=== PATIENT | male | born 1945 | race Caucasian/White ===

== ENCOUNTER 2023-06-09 02:45 | Emergency (ER) | payer OTHER ==
[2023-06-09 03:50] LABS: Hematocrit 37.2 % (39.6-49.0); Lymphocytes % 12.8 % (15.3-44.8); MCV 86.5 fL (80-100); MPV 6.3 fL (7.6-11.3); Platelets 225 thou/uL (152-406)
[2023-06-09 04:02] LABS: Albumin 3.8 g/dL (3.4-5.0); Bilirubin Direct 0.2 mg/dL (0-0.2); Bilirubin Indirect, Calculated 0.5 mg/dL (0.2-0.8); Bilirubin Total 0.7 mg/dL (0.2-1.0); Potassium 3.8 mEq/L (3.5-5.1); Protein, Total 7.7 g/dL (6.4-8.2); Troponin High Sensitivity 12.4 pg/mL (<58.9)
--- NOTE | 2023-06-09 04:12 | ER ---
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 Pt cm10 reports that he is also seeing floaters. Coronavirus screen: Vaccine status: Patient reports being unvaccinated. Client denies travel out of the [place] in the last 14 days. Ebola Screen: Patient denies travel to an Ebola-affected area in the 21 days before illness onset. No symptoms or risks identified at this time. Initial Sepsis Screen: Does the patient meet any 2 criteria? No. Patient's initial sepsis screen is negative. Does the patient have a suspected source of infection? No. Patient's initial sepsis screen is negative. Risk Assessment: Do you want to hurt yourself or someone else? Patient reports no desire to harm self or others. Onset of symptoms was June 09, 2023. 03:07 Method Of Arrival: Ambulatory cm10 03:07 Acuity: DK 3 cm10 Triage Assessment: 03:09 General: Appears in no apparent distress. comfortable, Behavior is calm, cooperative. cm10 Pain: Denies pain. EENT:. EENT: No deficits noted. No signs and/or symptoms were reported regarding the EENT system. Neuro: No deficits noted. Level of Consciousness is awake, alert, obeys commands, Oriented to person, place, time, situation, Reports. Cardiovascular: No deficits noted. Respiratory: No deficits noted. Airway is patent Respiratory effort is even, unlabored, Respiratory pattern is regular, symmetrical. GI: No deficits noted. No signs and/or symptoms were reported involving the gastrointestinal system. : No deficits noted. No signs and/or symptoms were reported regarding the genitourinary system. Derm: No deficits noted. No signs and/or symptoms reported regarding the dermatologic system. Skin is intact, Skin is pink, warm \T\ dry. Musculoskeletal: No deficits noted. No signs and/or symptoms reported regarding the musculoskeletal system. Historical: - Allergies: 03:09 NKDA; cm10 - PMHx: 03:09 CVA; Diabetes - NIDDM; Hypertension; Hypercholesterolemia; cm10 - Immunization history:: Adult Immunizations unknown. - Social history:: Smoking status: Patient/guardian denies using tobacco, the patient reports quitting approximately 20 years ago. Screenin:11 [facility] ED Fall Risk Assessment (Adult) History of falling in the last 3 months, cm10 including since admission No falls in past 3 months (0 pts) Confusion or Disorientation No (0 pts) Intoxicated or Sedated No (0 pts) Impaired Gait No (0 pts) Mobility Assist Device Used No (0 pt) Altered Elimination No (0 pt) Score/Fall Risk Level 0 - 2 = Low Risk Oriented to surroundings, Maintained a safe environment, Hourly rounding (assess needs \T\ fall precautionary measures) done. Abuse screen: Denies threats or abuse. Denies injuries from another. Nutritional screening: No deficits noted. Tuberculosis screening: No symptoms or risk factors identified. Assessment: 03:23 General: Appears in no apparent distress. comfortable, slender, Behavior is calm, jj7 cooperative, appropriate for age, Reports. Pain: Denies pain. Neuro: No deficits noted. EENT: Reports EYE FLOATERS. Vital Signs: 03:07 BP 205 / 88; Pulse 89; Resp 18 S; Temp 97.8; Pulse Ox 100% on R/A; Weight 68.04 kg; cm10 Height 6 ft. 1 in. ; Pain 0/10; 04:00 BP 161 / 72; Pulse 69; Resp 17; Pulse Ox 99% on R/A; pf1 03:07 Body Mass Index 19.79 (68.04 kg, 185.42 cm) cm10 03:07 Pain Scale: Adult cm10 ED Course: 02:50 Patient arrived in ED. gm2 02:51 Enoc Rubio MD is Private Physician. gm2 03:07 Vonnie Sparks MD is Attending Physician. sp3 03:09 Triage completed. cm10 03:09 Arm band placed on Patient placed in an exam room, on a stretcher. cm10 03:12 Mariano Cook RN is Primary Nurse. jj7 03:23 Patient has correct armband on for positive identification. Bed in low position. Call jj7 light in reach. Side rails up X2. Client placed on continuous cardiac and pulse oximetry monitoring. NIBP monitoring applied. tobacco shaker on. Pulse ox on. NIBP on. Warm blanket given. 03:23 Inserted saline lock: 20 gauge in right antecubital area, using aseptic technique. jj7 Blood collected. 03:33 CT Head Brain wo Cont In Process Unspecified. EDMS 04:34 Provided Education on: FOODS TO EAT FOR LOW BLOOD SUGAR. jj7 04:34 No provider procedures requiring assistance completed. IV discontinued, intact, jj7 bleeding controlled, No redness/swelling at site. Pressure dressing applied. Administered Medications: No medications were administered Medication: 03:11 VIS not applicable for this client. cm10 Outcome: 04:11 Discharge ordered by . [email or web address] 04:34 Discharged to home ambulatory, jj7 04:34 Condition: improved 04:34 Discharge instructions given to patient, Instructed on discharge instructions, Demonstrated understanding of instructions, 04:35 Patient left the ED. jj7 Signatures: Dispatcher [employer] Vonnie Mcclendon MD MD sp3 Mariano Cook RN RN jj7 Dora Ribeiro, DAVI RN pf1 Batsheva Zarate RN RN cm10 Bobbi Lopez 2
--- NOTE | 2023-06-09 04:12 | EDPHYS ---
Physician Documentation [facility] Name: Irving Mendenhall Age: 78 yrs Sex: Male : 1945 Arrival Date: 06/09/2023 Time: 02:45 Bed 17 Private MD: Enoc Rubio T ED Physician Vonnie Sparks HPI: 06/09 03:22 This 78 yrs old Male presents to ER via Ambulatory with complaints of High Blood Sugar, sp3 Dizziness. 03:22 78-year-old male with history of non-insulin diabetes, CVA, hypertension, sp3 hyperlipidemia presents to the ED with chief complaint hyperglycemia and "spots in his vision" which have now improved for the most part. His blood sugar at home was 280 which got him concerned and therefore he presents to the ED. He denies any other symptoms include polyuria, polydipsia, headache, chest pain, shortness of breath, abdominal pain, nausea, vomiting, diarrhea, syncope, near syncope, rash, focal neurological deficit including weakness or numbness (above his baseline bilateral hand numbness that he has had) or any other signs or symptoms on ROS at this time.. Historical: - Allergies: 03:09 NKDA; cm10 - PMHx: 03:09 CVA; Diabetes - NIDDM; Hypertension; Hypercholesterolemia; cm10 - Immunization history:: Adult Immunizations unknown. - Social history:: Smoking status: Patient/guardian denies using tobacco, the patient reports quitting approximately 20 years ago. ROS: 03:24 Constitutional: Negative for fever, chills, and weight loss, ENT: Negative for injury, sp3 pain, and discharge, Neck: Negative for injury, pain, and swelling, Cardiovascular: Negative for chest pain, palpitations, and edema, Respiratory: Negative for shortness of breath, cough, wheezing, and pleuritic chest pain, Abdomen/GI: Negative for abdominal pain, nausea, vomiting, diarrhea, and constipation, Back: Negative for injury and pain, MS/Extremity: Negative for injury and deformity, Skin: Negative for injury, rash, and discoloration, Neuro: Negative for headache, weakness, numbness, tingling, and seizure, Psych: Negative for depression, anxiety, suicide ideation, homicidal ideation, and hallucinations, Allergy/Immunology: Negative for hives, rash, and allergies, Endocrine: Negative for neck swelling, polydipsia, polyuria, polyphagia, and marked weight changes, 03:24 All other systems are negative, Exam: 03:25 Constitutional: This is a well developed, well nourished patient who is awake, alert, sp3 and in no acute distress. Head/Face: Normocephalic, atraumatic. Eyes: Pupils equal round and reactive to light, extra-ocular motions intact. Lids and lashes normal. Conjunctiva and sclera are non-icteric and not injected. Cornea within normal limits. Periorbital areas with no swelling, redness, or edema. ENT: Nares patent. No nasal discharge, no septal abnormalities noted. External auditory canals are clear. Oropharynx with no redness, swelling, or masses, exudates, or evidence of obstruction, uvula midline. Mucous membranes moist. Neck: Trachea midline, no thyromegaly or masses palpated, and no cervical lymphadenopathy. Supple, full range of motion without nuchal rigidity, or vertebral point tenderness. No Meningismus. Chest/axilla: Normal chest wall appearance and motion. Nontender with no deformity. No lesions are appreciated. Cardiovascular: Regular rate and rhythm with a normal S1 and S2. No gallops, murmurs, or rubs. Normal PMI, no JVD. No pulse deficits. Respiratory: Lungs have equal breath sounds bilaterally, clear to auscultation and percussion. No rales, rhonchi or wheezes noted. No increased work of breathing, no retractions or nasal flaring. Abdomen/GI: Soft, non-tender, with normal bowel sounds. No distension or tympany. No guarding or rebound. No evidence of tenderness throughout. Back: No spinal tenderness. No costovertebral tenderness. Full range of motion. Skin: Warm, dry with normal turgor. Normal color with no rashes, no lesions, and no evidence of cellulitis. MS/ Extremity: Pulses equal, no cyanosis. Neurovascular intact. Full, normal range of motion. Neuro: Awake and alert, GCS 15, oriented to person, place, time, and situation. Cranial nerves II-XII grossly intact. Motor strength 5/5 in all extremities. Sensory grossly intact. Cerebellar exam normal. Normal gait. Psych: Awake, alert, with orientation to person, place and time. Behavior, mood, and affect are within normal limits. 04:00 ECG was reviewed by the Attending Physician. EKG demonstrates normal sinus rhythm with sp3 first-degree AV block at 202 ms, normal QRS, normal axis, mild J-point elevation inferiorly and nonspecific ST/T changes without any evidence of acute ischemia. Vital Signs: 03:07 BP 205 / 88; Pulse 89; Resp 18 S; Temp 97.8; Pulse Ox 100% on R/A; Weight 68.04 kg; cm10 Height 6 ft. 1 in. ; Pain 0/10; 04:00 BP 161 / 72; Pulse 69; Resp 17; Pulse Ox 99% on R/A; pf1 03:07 Body Mass Index 19.79 (68.04 kg, 185.42 cm) cm10 03:07 Pain Scale: Adult cm10 MDM: 03:07 Patient medically screened. sp3 03:25 Data reviewed: vital signs, nurses notes, longterm records, old medical records, sp3 lab test result(s), EKG, radiologic studies. ED course: 78-year-old male with symptoms of hyperglycemia" spots on his vision" he also is hypertensive at 205/88. We will treat as a rule out acidosis and pretense of urgency scenario. Work-up will include laboratory values, EKG, CT scan of the head and general observation. No intervention for the hyperglycemia required since our fingerstick blood glucose was 150. If work-up is negative, we will safely discharge patient home. Possibly intervene on blood pressure but will trend it out before medical intervention.. 04:10 ED course: Patient is not in acidosis and does not demonstrate any endorgan damage. Old sp3 CVA is present on CT. We will safely discharge patient home at this time.. 06/09 03:08 Order name: Basic Metabolic Panel; Complete Time: 04:09 sp3 06/09 03:08 Order name: CBC with Diff; Complete Time: 03:59 sp3 06/09 03:08 Order name: Hepatic Function; Complete Time: 04: sp3 06/09 03:08 Order name: Magnesium; Complete Time: 04:09 sp3 06/09 03:08 Order name: Troponin High Sensitivity; Complete Time: 04:09 sp3 06/09 03:25 Order name: Glucose, Ancillary Testing; Complete Time: 03:59 EDMS 06/09 03:08 Order name: CT Head Brain wo Cont sp3 06/09 03:08 Order name: EKG; Complete Time: 03:08 sp3 06/09 03:08 Order name: Cardiac monitoring; Complete Time: 04:16 sp3 06/09 03:08 Order name: EKG - Nurse/Tech; Complete Time: 04:16 sp3 06/09 03:08 Order name: IV Saline Lock; Complete Time: 03:23 sp3 06/09 03:08 Order name: Labs collected and sent; Complete Time: 03:23 sp3 06/09 03:08 Order name: NPO; Complete Time: 03:23 sp3 06/09 03:08 Order name: O2 Sat Monitoring; Complete Time: 03:23 sp3 06/09 03:39 Order name: Recheck Blood Pressure; Complete Time: 04:13 sp3 Administered Medications: No medications were administered Disposition Summary: 06/09/23 04:11 Discharge Ordered Notes: Location: Home sp3 Condition: Stable sp3 Diagnosis - Hyperglycemia, hypertensive urgency sp3 Followup: sp3 - With: Private Physician - When: Upon discharge from the Emergency Department - Reason: Continuance of care Discharge Instructions: - Discharge Summary Sheet sp3 - Hyperglycemia sp3 - Hypertension, Adult sp3 Forms: - Medication Reconciliation Form sp3 - Thank You Letter sp3 - Antibiotic Education sp3 - Prescription Opioid Use sp3 - Patient Portal Instructions sp3 - Leadership Thank You Letter sp3 Signatures: Dispatcher [employer] Vonnie Mcclendon MD MD sp3 Batsheva Zarate, RN RN cm10
[2023-06-09 04:45] VITALS: TEMP 97.8
[2023-06-09 04:51] VITALS: BP 161/72; O2SAT 99
--- NOTE | 2023-06-09 10:38 | RAD REPORT ---
EXAM DESCRIPTION: Head Brain Wo Cont CLINICAL HISTORY: VISUAL DISTURBANCES TECHNIQUE: Contiguous axial CT images obtained through the brain without IV contrast. Coronal and sa gittal reformatted images were provided. This exam was performed according to our departmental dose-optimization program, which includes autom ated exposure control, adjustment of the mA and/or kV according to patient size and/or use of iterati ve reconstruction technique. COMPARISON: None available for comparison FINDINGS: Brain: Age-related loss of brain volume and chronic white matter ischemic changes. Chronic left occipital infarction with encephalomalacia. Chronic left basal ganglia and streeter radiata infarction. . No focal mass effect. Julio-white matter differentiation is within normal limits. No hemorrhage. Ventricles: No ventriculomegaly or midline shift. Extra-axial spaces: No extra-axial collection or hemorrhage. Paranasal sinuses and mastoid air cells: Well-aerated Bones: Unremarkable Soft tissues: Unremarkable IMPRESSION: 1. No acute intracranial or extra-axial abnormality. 2. Age-related loss of brain volume and chronic white matter ischemic changes. Chronic left occipit al infarction with encephalomalacia. Chronic left basal ganglia and streeter radiata infarction. Electronically signed by: Madi Harrington MD 06/09/2023 4:17 AM CDT Due to temporary technical issues with the PACS/Fluency reporting system, reports are being signed by the in house radiologist without review as a courtesy to ensure prompt reporting. The interpreting r adiologist is fully responsible for the content of the report.
--- NOTE | 2023-06-09 16:37 | EKG ---
Test Date: 2023-06-09 Test Time: 03:45:34 Clam Bed Laborer: KEITH MEASUREMENT RESULTS: Intervals: Rate: 62 [place]: 202 QRSD: 98 QT: 388 QTc: 393 [place]: P: 65 [place]: 202 QRS: 37 T: 41 INTERPRETIVE STATEMENTS: Normal sinus rhythm Normal ECG Compared to ECG 05/18/2016 08:34:54 No significant changes Electronically Signed On 06-09-23 16:36:19 CDT by Carlos Napoles
== END 2023-06-09 04:35 | disposition home or self-care (01) ==
LOC: ER 02:45
DX: E11.65 Type 2 diabetes mellitus with hyperglycemia (principal); I16.0 Hypertensive urgency; I10 Essential (primary) hypertension; Z86.73 Personal history of transient ischemic attack (TIA), and cerebral infarction without residual deficits
CPT/HCPCS: 36415; 70450; 80048; 80076; 82947; 83735; 84484; 85025; 93005; 99284

== ENCOUNTER 2023-08-13 05:52 | Emergency (ER) | payer OTHER ==
--- OUTSIDE RECORDS SUMMARY | 2023-08-13 05:56 | XMS REPORT | Continuity of Care Document ---
Author Name Unknown Address [address] [facility] [address] [place] [address] [facility] Address [address] [facility] 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 Name Role Phone Enoc Rubiourston Primary Care Physician [phone] HENNY DRUMMOND Attending Clinician Unavailable HENNY DRUMMOND Attending Clinician Unavailable Henny Drummond DO Attending Clinician [phone] COURTNEY ACEVEDO Attending Clinician Unavailable COURTNEY ACEVEDO Attending Clinician Unavailable JESSICA SCHMIDT Attending Clinician Unavailable Jessica Schmidt DO Attending Clinician [phone] EDILSON NOYOLA Attending Clinician Unavailable Edilson Noyola MD Attending Clinician [phone] Marycruz Jackson MD Attending Clinician [phone] Milton Moore RN Attending Clinician Unavail able QUENTIN SAVAGE Attending Clinician Unavailable Quentin Savage MD Attending Clinician [phone] MEG BROCK Attending Clinician Unavailable Meg Brock MD Attending Clinician [phone] Doctor Unassigned, [place] Attending Clinician U NATTY Harrison Attending Clinician UnavailNatty Martinez Attending Clinician [phone] Sierra Vines DO Attending Clinician [phone] QUENTIN SAVAGE Admitting Clinician Unavailable Quentin Savage MD Admitting Clinician [phone] MEG BROCK Admitting Clinician Unavailable NATTY HARO Admitting Clinician Unavaila ble Payers Payer Name Policy Type Policy Number Effective Date Expirati on Date Source MEDICARE PART A \\T\\ [id number] 2008 00:00:00 Problems Condition Name Condition Details Condition Category Status Onset Date Resolution Date Last Treatment Date Treating Clinician Comments Source Chest pain, unspecifie d type Chest pain, unspecifie d type Disease Active 03-16 00:00: 00 [facility] Hypertensi ve urgency Hypertensi ve urgency Disease Active 03-16 00:00: 00 [facility] History of arterial ischemic stroke History of arterial ischemic stroke Disease Active 03-16 00:00: 00 [facility] Palpitatio ns Palpitatio ns Disease Active 2015-09 00:00: 00 [facility] NARESH (obstructi ve sleep apnea) NARESH (obstructi ve sleep apnea) Disease Active 2015-09 00:00: 00 [facility] HTN (hypertens ion) HTN (hypertens ion) Disease Active 2015-09 00:00: 00 [facility] HLD (hyperlipi demia) HLD (hyperlipi demia) Disease Active 2015-09 00:00: 00 [facility] Hypoglycem ia Hypoglycem ia Disease Active 2015-09 00:00: 00 [facility] Chest pain at rest Chest pain at rest Disease Active 2014-09 00:00: 00 [facility] Chest pain Chest pain Disease Active 05-13 00:00: 00 [facility] Allergies, Adverse Reactions, Alerts Allergy Name Allergy Type Status Severity Reaction(s) Onset Date Inactive Date Treating Clinician Comments Source WARFARIN SODIUM DRUG INGREDI Active Hallucinates 2015-09 00:00: 00 [facility] CLOPIDOG REL BISULFAT E DRUG INGREDI Active Hallucinates 2015-09 00:00: 00 [facility] NO KNOWN ALLERGIE S Drug Class Active [facility] Social History Social Habit Start Date Stop Date Quantity Comments Source Gender identity [facility] Sexual orientation [facility] History of Social function 2023-07-29 00:00:00 2023-07-29 00:00:00 [facility] Alcohol intake 2023-07-29 00:00:00 2023-07-29 00:00:00 0 /d [facility] Cigarettes smoked current (pack per day) - Reported 2023-03-16 00:00:00 2023-03-16 00:00:00 [facility] Tobacco Comment 2023-03-16 00:00:00 2023-03-16 00:00:00 Quit 20 years ago. [facility] Cigarette pack-years 2023-03-16 00:00:00 2023-03-16 00:00:00 [facility] Tobacco use and exposure 2023-03-16 00:00:00 2023-03-16 00:00:00 Smokeless tobacco non-user [facility] Exposure to SARS-CoV-2 (event) 2022-10-18 00:00:00 2022-10-28 23:04:00 Not sure [facility] History of tobacco use 1999-09-12 00:00:00 Cigarette Smoker [facility] Sex Assigned At 1945 00:00:00 1945 00:00:00 [facility] Smoking Status Start Date Stop Date Source Ex-smoker 2023-03-16 00:00:00 2023-03-16 00:00:00 [facility] Medications Ordered Medication Name Filled Medication Name Start Date Stop Date Current Medication? Ordering Clinician Indication Dosage Frequency Signature (SIG) Comments Components Source oxymetazoli ne (OXYMETAZOL INE HCL) 0.05 % nasal spray 1 [place] 2022-09 11:00: 00 08-13 10:47 :00 No 1{spray } 1 [place], Nasal, ONCE, 1 dose, On Wed08/13/23 at 0500, JONAS [facility] losartan (COZAAR) tablet 100 mg 2022-09 08:45: 00 07-29 07:52 :00 No [id number] 100mg 100 mg, Oral, ONCE, 1 dose, On Neida 07/29/23 at 0245, Routine [facility] sodium chloride (SALINE MIST) 0.65 % nasal spray 2022-09 00:00: 00 08-06 05:59 :00 Yes [id number] 1{spray } Use 1 [place] in each nostril as needed for Other (spray in the morning and at night. keep nares moist.) for up to 7 days. [facility] NaCl 0.9% (NS) bolus infusion 500 mL 2022-09 02:00: 00 06-08 03:00 :00 No 500mL at 999 mL/hr, 500 mL, IV Piggyback, ONCE, 1 dose, On 06/07/23 at 2100, STAT [facility] losartan (COZAAR) 100 mg tablet 03-17 14:00: 44 Yes 100mg Take 1 tablet by mouth in the morning. [facility] clopidogreL (PLAVIX) 75 mg tablet 03-17 14:00: 44 Yes 75mg Take 1 tablet by mouth in the morning. [facility] atorvastati n 20 mg tablet 03-17 14:00: 44 Yes 20mg Take 1 tablet by mouth at bedtime. [facility] glimepiride 2 mg tablet 03-17 14:00: 44 Yes 2mg Take 1 tablet by mouth daily with breakfast. [facility] losartan (COZAAR) 100 mg tablet 03-17 14:00: 44 Yes 100mg Take 1 tablet by mouth in the morning. [facility] clopidogreL (PLAVIX) 75 mg tablet 03-17 14:00: 44 Yes 75mg Take 1 tablet by mouth in the morning. [facility] atorvastati n 20 mg tablet 03-17 14:00: 44 Yes 20mg Take 1 tablet by mouth at bedtime. [facility] glimepiride 2 mg tablet 03-17 14:00: 44 Yes 2mg Take 1 tablet by mouth daily with breakfast. [facility] losartan (COZAAR) 100 mg tablet 2022-0 03-17 14:00: 44 Yes 100mg Take 1 tablet by mouth in the morning. [facility] clopidogreL (PLAVIX) 75 mg tablet 2022-0 03-17 14:00: 44 Yes 75mg Take 1 tablet by mouth in the morning. [facility] atorvastati n 20 mg tablet 2022-0 03-17 14:00: 44 Yes 20mg Take 1 tablet by mouth at bedtime. [facility] glimepiride 2 mg tablet 2022-0 03-17 14:00: 44 Yes 2mg Take 1 tablet by mouth daily with breakfast. [facility] losartan (COZAAR) 100 mg tablet 0 03-17 14:00: 44 Yes 100mg Take 1 tablet by mouth in the morning. [facility] clopidogreL (PLAVIX) 75 mg tablet 2022-0 03-17 14:00: 44 Yes 75mg Take 1 tablet by mouth in the morning. [facility] atorvastati n 20 mg tablet 2022-0 03-17 14:00: 44 Yes 20mg Take 1 tablet by mouth at bedtime. [facility] glimepiride 2 mg tablet 2022-0 03-17 14:00: 44 Yes 2mg Take 1 tablet by mouth daily with breakfast. [facility] losartan (COZAAR) 100 mg tablet 2022-0 03-17 14:00: 44 Yes 100mg Take 1 tablet by mouth in the morning. [facility] clopidogreL (PLAVIX) 75 mg tablet 2022-0 03-17 14:00: 44 Yes 75mg Take 1 tablet by mouth in the morning. [facility] atorvastati n 20 mg tablet 2022-0 03-17 14:00: 44 Yes 20mg Take 1 tablet by mouth at bedtime. [facility] glimepiride 2 mg tablet 2022-0 03-17 14:00: 44 Yes 2mg Take 1 tablet by mouth daily with breakfast. [facility] losartan (COZAAR) 100 mg tablet 2022-0 03-17 14:00: 44 Yes 100mg Take 1 tablet by mouth in the morning. [facility] clopidogreL (PLAVIX) 75 mg tablet 03-17 14:00: 44 Yes 75mg Take 1 tablet by mouth in the morning. [facility] atorvastati n 20 mg tablet 03-17 14:00: 44 Yes 20mg Take 1 tablet by mouth at bedtime. [facility] glimepiride 2 mg tablet 03-17 14:00: 44 Yes 2mg Take 1 tablet by mouth daily with breakfast. [facility] losartan (COZAAR) 100 mg tablet 03-17 14:00: 44 Yes 100mg Take 1 tablet by mouth in the morning. [facility] clopidogreL (PLAVIX) 75 mg tablet 03-17 14:00: 44 Yes 75mg Take 1 tablet by mouth in the morning. [facility] atorvastati n 20 mg tablet 03-17 14:00: 44 Yes 20mg Take 1 tablet by mouth at bedtime. [facility] glimepiride 2 mg tablet 03-17 14:00: 44 Yes 2mg Take 1 tablet by mouth daily with breakfast. [facility] clopidogreL (PLAVIX) 75 mg tablet 75 mg 03-17 14:00: 00 Yes 75mg 75 mg, Oral, DAILY, First dose on Wed03/17/23 at 0900, Until Discontinu ed, Routine [facility] atorvastati n (LIPITOR) tablet 20 mg 03-17 02:00: 00 Yes 20mg 20 mg, Oral, QHS, First dose on Wed03/16/23 at 2100, Until Discontinu ed, Routine [facility] enoxaparin (LOVENOX) injection 40 mg 03-16 22:00: 00 Yes 40mg 40 mg, Subcutaneo us, DAILY, First dose on Wed03/16/23 at 1700, Until Discontinu ed, Routine [facility] losartan (COZAAR) tablet 100 mg 03-16 18:15: 00 Yes 100mg 100 mg, Oral, DAILY, First dose on Wed03/16/23 at 1315, Until Discontinu ed, Routine [facility] ondansetron (ZOFRAN (PF)) injection 4 mg 03-16 18:05: 57 Yes 4mg 4 mg, Slow IV Push, Q6HPRN, Starting on Wed03/16/23 at 1305, Until Discontinu ed, Routine, Nausea and Vomiting (N/V) [facility] HYDROcodone -acetaminop hen (NORCO 5) 5-325 mg tablet 1 tablet 03-16 18:05: 53 03-18 18:04 :53 No 1{tbl} 1 tablet, Oral, Q6HPRN, Starting on Wed03/16/23 at 1305, Until Wed03/18/23 at 1304, Routine, Pain (scale 4-6) [facility] acetaminoph en (TYLENOL) tablet 650 mg 03-16 18:05: 44 Yes 650mg 650 mg, Oral, Q6HPRN, Starting on Wed03/16/23 at 1305, Until Discontinu ed, Routine, Pain (scale 1-3), Temp > 38 C [facility] metoprolol (LOPRESSOR) injection 5 mg 10-29 09:15: 00 10-29 09:26 :00 No 5mg 5 mg, Slow IV Push, ONCE, 1 dose, On Wed10/29/22 at 0315, JONAS [facility] clopidogreL (PLAVIX) 75 mg tablet 10-29 02:01: 21 Yes 75mg Take 75 mg by mouth in the morning. [facility] atorvastati n 20 mg tablet 10-29 02:01: 21 Yes 20mg Take 20 mg by mouth at bedtime. [facility] glimepiride 2 mg tablet 10-29 02:01: 21 Yes 2mg Take 2 mg by mouth daily with breakfast. [facility] losartan (COZAAR) tablet 100 mg 1-08 15:15: 00 09-13 14:33 :00 No 100mg 100 mg, Oral, ONCE, 1 dose, On 09/13/22 at 0915, Routine [facility] NaCl 0.9% (NS) bolus infusion 1,000 mL 03-27 16:00: 00 03-27 16:38 :00 No 1000mL at 999 mL/hr, 1,000 mL, IV Piggyback, ONCE, 1 dose, [facility] 03/27/21 at 1100, STAT [facility] acute [facility] losartan (COZAAR) 100 mg tablet 2015-09 20:49: 00 Yes 100mg Take 100 mg by mouth daily. [facility] losartan (COZAAR) 100 mg tablet 2015-09 20:49: 00 Yes 100mg Take 100 mg by mouth daily. [facility] losartan (COZAAR) 100 mg tablet 2015-09 20:49: 00 Yes 100mg Take 100 mg by mouth daily. [facility] losartan (COZAAR) 100 mg tablet 2015-09 14:49: 00 Yes 100mg Take 100 mg by mouth daily. [facility] losartan (COZAAR) 100 mg tablet 2015-09 14:49: 00 Yes 100mg Take 100 mg by mouth daily. [facility] losartan (COZAAR) 100 mg tablet 2015-09 14:49: 00 Yes 100mg Take 100 mg by mouth daily. [facility] ondansetron (ZOFRAN, HYDROCHLORI DE,) 4 mg tablet 2015-09 00:00: 00 Yes 4mg Take 1 tablet by mouth every 8 (eight) hours as needed for Nausea and Vomiting (N/V). [facility] furosemide (LASIX) 20 mg tablet 2015-09 00:00: 00 Yes 20mg Take 1 tablet by mouth every morning. [facility] KCL (KLOR-CON M10) 10 mEq tablet 2015-09 00:00: 00 Yes 10meq Take 1 tablet by mouth daily. [facility] ondansetron (ZOFRAN, HYDROCHLORI DE,) 4 mg tablet 2015-09 00:00: 00 Yes 4mg Take 1 tablet by mouth every 8 (eight) hours as needed for Nausea and Vomiting (N/V). [facility] furosemide (LASIX) 20 mg tablet 2015-09 00:00: 00 Yes 20mg Take 1 tablet by mouth every morning. [facility] KCL (KLOR-CON M10) 10 mEq tablet 2015-09 00:00: 00 Yes 10meq Take 1 tablet by mouth daily. [facility] ondansetron (ZOFRAN, HYDROCHLORI DE,) 4 mg tablet 2015-09 00:00: 00 Yes 4mg Take 1 tablet by mouth every 8 (eight) hours as needed for Nausea and Vomiting (N/V). [facility] furosemide (LASIX) 20 mg tablet 2015-09 00:00: 00 Yes 20mg Take 1 tablet by mouth every morning. [facility] KCL (KLOR-CON M10) 10 mEq tablet 2015-09 00:00: 00 Yes 10meq Take 1 tablet by mouth daily. [facility] ondansetron (ZOFRAN, HYDROCHLORI DE,) 4 mg tablet 2015-09 00:00: 00 Yes 4mg Take 1 tablet by mouth every 8 (eight) hours as needed for Nausea and Vomiting (N/V). [facility] furosemide (LASIX) 20 mg tablet 2015-09 00:00: 00 Yes 20mg Take 1 tablet by mouth every morning. [facility] KCL (KLOR-CON M10) 10 mEq tablet 2015-09 00:00: 00 Yes 10meq Take 1 tablet by mouth daily. [facility] ondansetron (ZOFRAN, HYDROCHLORI DE,) 4 mg tablet 2015-09 00:00: 00 Yes 4mg Take 1 tablet by mouth every 8 (eight) hours as needed for Nausea and Vomiting (N/V). [facility] furosemide (LASIX) 20 mg tablet 2015-09 00:00: 00 Yes 20mg Take 1 tablet by mouth every morning. [facility] KCL (KLOR-CON M10) 10 mEq tablet 2015-09 00:00: 00 Yes 10meq Take 1 tablet by mouth daily. [facility] ondansetron (ZOFRAN, HYDROCHLORI DE,) 4 mg tablet 2015-09 00:00: 00 10-29 00:00 :00 No 4mg Take 1 tablet by mouth every 8 (eight) hours as needed for Nausea and Vomiting (N/V). [facility] furosemide (LASIX) 20 mg tablet 2015-09 00:00: 00 10-29 00:00 :00 No 20mg Take 1 tablet by mouth every morning. [facility] KCL (KLOR-CON M10) 10 mEq tablet 2015-09 00:00: 00 10-29 00:00 :00 No 10meq Take 1 tablet by mouth daily. [facility] acute [facility] nitroglycer in (NITROSTAT) 0.4 mg sublingual tablet 05-14 00:00: [address] 1 Tab under the tongue every 5 (five) minutes as needed for Chest pain. [facility] nitroglycer in (NITROSTAT) 0.4 mg sublingual tablet 05-14 00:00: [address] 1 Tab under the tongue every 5 (five) minutes as needed for Chest pain. [facility] nitroglycer in (NITROSTAT) 0.4 mg sublingual tablet 05-14 00:00: [address] 1 Tab under the tongue every 5 (five) minutes as needed for Chest pain. [facility] nitroglycer in (NITROSTAT) 0.4 mg sublingual tablet 05-14 00:00: [address] 1 Tab under the tongue every 5 (five) minutes as needed for Chest pain. [facility] 0.4 mg sublingual tablet 05-14 00:00: [address] 1 Tab under the tongue every 5 (five) minutes as needed for Chest pain. [facility] nitroglycer in (NITROSTAT) 0.4 mg sublingual tablet 05-14 00:00: 00 10-29 00:00 :[address] 1 Tab under the tongue every 5 (five) minutes as needed for Chest pain. [facility] Vital Signs Vital Name Observation Time Observation Value Comments Juan peña Systolic blood pressure 2023-08-13 10:43:00 198 mm[Hg] [facility] Diastolic blood pressure 2023-08-13 10:43:00 94 mm[Hg] [facility] Heart rate 2023-08-13 10:43:00 91 /min Unive [facility] Body temperature 2023-08-13 10:43:00 36.72 Jenifer [facility] Respiratory rate 2023-08-13 10:43:00 18 /min [facility] Oxygen saturation in Arterial blood by Pulse oximetry 2023-08-13 10:43:00 97 /min [facility] Systolic blood pressure 2023-07-29 08:30:00 174 mm[Hg] [facility] Diastolic blood pressure 2023-07-29 08:30:00 87 mm[Hg] [facility] Heart rate 2023-07-29 08:30:00 68 /min [facility] Body temperature 2023-07-29 08:30:00 36.67 Jenifer [facility] Oxygen saturation in Arterial blood by Pulse oximetry 2023-07-29 08:30:00 98 /min [facility] Respiratory rate 2023-07-29 07:33:00 16 /min [facility] Body weight 2023-07-29 07:33:00 68.04 kg [facility] BMI 2023-07-29 07:33:00 19.79 kg/m2 [facility] Systolic blood pressure 2023-06-09 17:44:36 178 mm[Hg] [facility] Diastolic blood pressure 2023-06-09 17:44:36 81 mm[Hg] [facility] Heart rate 2023-06-09 17:44:36 87 /min Unive [facility] Body temperature 2023-06-09 17:44:36 37 Jenifer [facility] Respiratory rate 2023-06-09 17:44:36 16 /min [facility] Body height 2023-06-09 17:43:00 185.4 cm [facility] Body weight 2023-06-09 17:43:00 68.04 kg [facility] BMI 2023-06-09 17:43:00 19.79 kg/m2 [facility] Oxygen saturation in Arterial blood by Pulse oximetry 2023-06-09 17:43:00 98 /min [facility] Systolic blood pressure 2023 04:02:00 164 mm[Hg] [facility] Diastolic blood pressure 2023 04:02:00 71 mm[Hg] [facility] Heart rate 2023 04:02:00 60 /min Unive [facility] Body temperature 2023 04:02:00 36.61 [facility] Respiratory rate 2023 04:02:00 15 /min [facility] Oxygen saturation in Arterial blood by Pulse oximetry 2023 04:02:00 100 /min [facility] Body weight 2023 00:38:00 65.318 kg [facility] BMI 2023 00:38:00 19.00 kg/m2 [facility] Systolic blood pressure 2023-03-17 16:41:00 121 mm[Hg] [facility] Diastolic blood pressure 2023-03-17 16:41:00 68 mm[Hg] [facility] Heart rate 2023-03-17 16:41:00 69 /min Unive [facility] Oxygen saturation in Arterial blood by Pulse oximetry 2023-03-17 16:41:00 99 /min [facility] Body temperature 2023-03-17 12:52:00 36.67 Jenifer [facility] Respiratory rate 2023-03-17 12:52:00 22 /min [facility] Body weight 2023-03-17 08:02:00 65 kg [facility] BMI 2023-03-17 08:02:00 18.91 kg/m2 [facility] Body height 2023-03-16 16:52:00 185.4 cm [facility] Systolic blood pressure 2022-10-29 09:45:00 161 mm[Hg] [facility] Diastolic blood pressure 2022-10-29 09:45:00 82 mm[Hg] [facility] Heart rate 2022-10-29 09:45:00 63 /min Unive [facility] Respiratory rate 2022-10-29 09:45:00 20 /min [facility] Oxygen saturation in Arterial blood by Pulse oximetry 2022-10-29 09:45:00 98 /min [facility] Body temperature 2022-10-29 05:05:00 36.78 Jenifer [facility] Body height 2022-10-29 05:05:00 185.4 cm [facility] Body weight 2022-10-29 05:05:00 68.04 kg [facility] BMI 2022-10-29 05:05:00 19.79 kg/m2 [facility] Systolic blood pressure 2022-09-13 15:33:30 154 mm[Hg] [facility] Diastolic blood pressure 2022-09-13 15:33:30 74 mm[Hg] [facility] Heart rate 2022-09-13 15:33:30 57 /min [facility] Respiratory rate 2022-09-13 15:33:30 18 /min [facility] Oxygen saturation in Arterial blood by Pulse oximetry 2022-09-13 15:33:30 100 /min [facility] Body temperature 2022-09-13 14:13:00 36.5 Jenifer [facility] Body height 2022-09-13 14:13:00 185.4 cm [facility] Body weight 2022-09-13 14:13:00 70.308 kg [facility] BMI 2022-09-13 14:13:00 20.45 kg/m2 [facility] Systolic blood pressure 2021-03-27 16:00:00 150 mm[Hg] [facility] Diastolic blood pressure 2021-03-27 16:00:00 73 mm[Hg] [facility] Heart rate 2021-03-27 16:00:00 67 /min Unive [facility] Respiratory rate 2021-03-27 16:00:00 20 /min [facility] Oxygen saturation in Arterial blood by Pulse oximetry 2021-03-27 16:00:00 100 /min [facility] Body temperature 2021-03-27 14:13:00 36.5 Jenifer [facility] Body weight 2021-03-27 14:13:00 70.308 kg [facility] BMI 2021-03-27 14:13:00 20.45 kg/m2 [facility] Systolic blood pressure 2019-11-09 02:20:00 212 mm[Hg] [facility] Diastolic blood pressure 2019-11-09 02:20:00 84 mm[Hg] [facility] Heart rate 2019-11-09 02:20:00 78 /min Unive [facility] Respiratory rate 2019-11-09 02:20:00 18 /min [facility] Oxygen saturation in Arterial blood by Pulse oximetry 2019-11-09 02:20:00 98 /min [facility] Body temperature 2019-11-09 02:11:00 36.94 Jenifer [facility] Body height 2019-11-09 02:11:00 185.4 cm [facility] Body weight 2019-11-09 02:11:00 70.308 kg [facility] BMI 2019-11-09 02:11:00 20.45 kg/m2 [facility] Procedures Procedure Date / Time Performed Performing Clinician Source CONSENT/REFUSAL FOR DIAGNOSIS AND TREATMENT 2023-08-13 10:35:14 Doctor Unassigned, [place] [facility] POCT GLUCOSE (AUTOMATED) 2023-06-09 19:10:00 Jerry Schmidt [facility] POCT GLUCOSE (AUTOMATED) 2023-06-09 17:41:00 Doc tor Unassigned, [place] [facility] CONSENT/REFUSAL FOR DIAGNOSIS AND TREATMENT 2023-06-09 17:26:24 Doctor Unassigned, [place] [facility] URINALYSIS 2023 02:06:00 Edilson Noyola [facility] BASIC METABOLIC PANEL (NA, K, CL, CO2, GLUCOSE, BUN, CREATININE, CA) 2023 02:02:00 Edilson Noyola [facility] CBC WITH DIFF 2023 02:02:00 [facility] POCT GLUCOSE (AUTOMATED) 2023 00:43:00 Doc tor Unassigned, [place] [facility] CONSENT/REFUSAL FOR DIAGNOSIS AND TREATMENT 2023 00:32:12 Doctor Unassigned, [place] [facility] POCT GLUCOSE (AUTOMATED) 2023-03-17 15:50:00 Erica Savage [facility] MAGNESIUM 2023-03-17 08:16[facility] (NA, K, CL, CO2, GLUCOSE, BUN, CREATININE, CA) 2023-03-17 08:16:00 Janette [facility] LIPID PANEL ([id number])(TOTAL CHOLESTEROL, TRIGLYCERIDES, HDL) 2023-03-17 08:16:00 Janette [facility] TROPONIN I 2023-03-17 01:10:00 [facility] 2023-03-16 19:08:00 Quentin Savage [facility] TRANSTHORACIC ECHO (TTE) COMPLETE 2023-03-16 18:34[facility]23-03-16 15:34:00 Jessica Schmidt [facility] POCT GLUCOSE (AUTOMATED) 2023-03-16 15:27:00 Jerry Schmidt [facility] LIPASE 2023-03-16 12:56:00 Jessica Schmidt [facility] MAGNESIUM 2023-03-16 12:56:00 Jessica Schmidt [facility] TROPONIN I 2023-03-16 12:56:[address] [facility] THYROID STIMULATING HORMONE 2023-03-16 12:56[facility]00 [facility] METABOLIC PANEL ([id number]) 2023-03-16 12:56:00 Singer [facility] CBC WITH DIFF 2023-03-16 12:56:00 [facility] GLYCOSYLATED HEMOGLOBIN (A1C) 2023-03-16 12:56:00 Janette [facility] N-TERMINAL PRO-BNP 2023-03-16 12:56:00 Singer [facility] HB ECG ROUTINE & RHYTHM STRIP 2023-03-16 12:51:36 Singer [facility] CONSENT/REFUSAL FOR DIAGNOSIS AND TREATMENT 2023-03-16 12:47:55 Doctor Unassigned, Langston [facility] TROPONIN I 2022-10-29 07:56:00 Meg Brock [facility] LIPASE 2022-10-29 05:43:00 Meg Brock [facility] TROPONIN I 2022-10-29 05:43:00 Meg rBock [facility] COMP. METABOLIC PANEL ([id number]) 2022-10-29 05:43:00 Meg Brock [facility] CBC WITH DIFF 2022-10-29 05:43:00 Meg Brock [facility] NOTICE OF PRIVACY PRACTICES 2022-10-29 04:58:04 Doctor Unassigned, Langston [facility] CONSENT/REFUSAL FOR DIAGNOSIS AND TREATMENT 2022-10-29 04:57:28 Doctor Unassigned, Langston [facility] XR FINGERS 2 VW LEFT 2022-09-13 14:54:29 Mark Haro [facility] ED LACERATION REPAIR 2022-09-13 14:48:13 Mark Haro [facility] CONSENT/REFUSAL FOR DIAGNOSIS AND TREATMENT 2022-09-13 14:08:40 Doctor Unassigned, Langston [facility] XR CHEST 1 VW 2021-03-27 15:44:05 [facility] 2021-03-27 14:59:00 [facility] 2021-03-27 14:59:00 [facility] 2021-03-27 14:59:00 Sierra Vines [facility] HEPATIC FUNCTION PANEL ([id number]) (ALB,T.PRO,BILI T,BU/BC,ALT,AST,ALK PHOS) 2021-03-27 14:59:00 Sierra Vines [facility] BASIC METABOLIC PANEL (NA, K, CL, CO2, GLUCOSE, BUN, CREATININE, CA) 2021-03-27 14:59:00 Sierra Vines [facility] CBC WITH DIFF 2021-03-27 14:59:[address] [facility] N-TERMINAL PRO-BNP 2021-03-27 14:59:00 Alyce Vines [facility] NOTICE OF PRIVACY PRACTICES 2021-03-27 14:08:21 Doctor Unassigned, Langston [facility] CONSENT/REFUSAL FOR DIAGNOSIS AND TREATMENT 2021-03-27 14:07:54 Doctor Unassigned, Langston [facility] Encounters Start Date/Time End Date/Time Encounter Type Admission Type Attending [facility] Care Facility Care Department Encounter ID Source 2021-07-07 09:58:22 Emergency [facility] [id number] General acute hospital 2021-07-03 12:39:02 Emergency [facility] [id number] General acute hospital 2023-08-13 04:36:00 2023-08-13 05:11:00 Emergency X BHANU HENNY AVILA [facility] E[facility] [id number] General acute hospital 2023-08-13 04:36:00 2023-08-13 05:11:00 Emergency Henny Drummond [facility] 1.2.840.114 350.1.13.10 4.2.7.2.686 [id number] General acute hospital 2023-07-29 01:26:00 2023-07-29 02:48:00 Emergency X HAWA, AMIR COURTNEY ACEVEDO [facility] ERT [id number] General acute hospital 2023-07-29 01:26:00 2023-07-29 02:48:00 Emergency Judy Acevedor [facility] 1.2840.114 350.1.13.10 4.2.7.2.686 [id number] General acute hospital 2023-06-09 12:45:00 2023-06-09 14:34:00 Emergency X JESSICA SCHMIDT [facility] ERT [id number] General acute hospital 2023-06-09 12:45:00 2023-06-09 14:34:00 Emergency Jessica Schmidt [facility] 1.2840.114 350.1.13.10 4.2.7.2.686 [id number] General acute hospital 2023-06-07 19:44:00 2023-06-07 23:15:00 Emergency X EDILSON NOYOLA [facility] ERT [id number] General acute hospital 2023-06-07 19:44:00 2023-06-07 23:15:00 Emergency Nessa Noyolant Erica [facility] 1.2.840.114 350.1.13.10 4.2.7.2.686 [id number] General acute hospital 2023-03-18 00:00:00 2023-03-18 00:00:00 Telephone Marycruz Jackson [facility] PROFESSIO [facility] 1.2.840.114 350.1.13.10 4.2.7.2.686 [id number] General acute hospital 2023-03-18 00:00:00 2023-03-18 00:00:00 Transition of Care Milton Moore 1.2.840.114 350.1.13.10 4.2.7.2.686 [id number] General acute hospital 2023-03-16 07:50:00 2023-03-17 13:51:00 Outpatient X QUENTIN SAVAGE [facility] DARIAN [id number] General acute hospital 2023-03-16 07:50:00 2023-03-17 13:51:00 Emergency Jessica Schmidt Quentin [facility] 1.2.840.114 350.1.13.10 4.2.7.2.686 [id number] General acute hospital 2022-10-28 23:07:00 2022-10-29 04:01:00 Emergency X JEAN CARLOSMEG KING [facility] ERT [id number] General acute hospital 2022-10-28 23:07:00 2022-10-29 04:01:00 Emergency Jean Carlosflacodoni Blessinghattie Martinez [facility] 1.2.840.114 350.1.13.10 4.2.7.2.686 [id number] General acute hospital 2022-10-28 00:00:00 2022-10-28 00:00:00 Orders Only Doctor Unassigned, Langston [facility] 1.2.840.114 350.1.13.10 4.2.7.2.686 [id number] General acute hospital 2022-09-13 08:14:00 2022-09-13 09:42:00 Emergency X NATTY HARO [facility] E[facility] [id number] General acute hospital 2022-09-13 08:14:00 2022-09-13 09:42:00 Emergency Natty Haro [facility] 1.2.840.114 350.1.13.10 4.2.7.2.686 [id number] General acute hospital 2021-03-27 09:11:00 2021-03-27 11:40:00 Emergency Sierra Vines [facility] 1.2.840.114 350.1.13.10 4.2.7.2.686 [id number] General acute hospital 2021-03-27 00:00:00 2021-03-27 00:00:00 Orders Only Doctor Unassigned, Langston [facility] 1.2.840.114 350.1.13.10 4.2.7.2.686 [id number] General acute hospital 2019-11-08 20:06:08 2019-11-08 20:49:00 Emergency Sierra Vines [facility] 1.2.840.114 350.1.13.10 4.2.7.2.686 [id number] General acute hospital Results Test Description Test Time Test Comments Results Result Co mments Source [facility] GLUCOSE (AUTOMATED)2023-06-09 17:45:15* Test Item Value Reference Range Interpretation Comme nts POCT GLU (test code = 5321514154) 119 mg/dL 70-110 H Lab Interpretation (test cod e = 05853-9) Abnormal [facility] GLUCOSE (AUTOMATED)2023 00:44:26* Test Item Value Reference Range Interpretation Comme nts POCT GLU (test code = 6252450303) 197 mg/dL 70-110 H Lab Interpretation (test cod e = 02368-5) Abnormal [facility] GLUCOSE (AUTOMATED)2023-03-17 15:55:08* Test Item Value Reference Range Interpretation Comme [facility] POCT GLU (test code = 0764809443) 105 mg/dL 70-110 Lab Interpretation (test cod e = 84311-3) Normal [facility] Metabolic Panel (NA, K, CL, CO2, GLUCOSE, BUN, CREATININE, CA)2023-03-17 10:35:13* Test Item Value Reference Range Interpretation Comme nts NA (test code = 8630559677) 142 mmol/L 135-145 K (test code = 0258758544) 4.9 mmol/L 3.5-5.0 CL (test code = 9914168380) 104 mmol/L 98-108 CO2 TOTAL (test code = 0091478258) 26 mmol/L 23-31 AGAP (test code = 6570218811) 12 2-16 BUN (test code = 6474783409) 18 mg/dL 7-23 GLUCOSE (test code = 2269761344) 128 mg/dL 70-110 H CREATININE (test code = 7118934137) 1.07 mg/dL 0.60-1.25 CALCIUM (test code = 0390286457) 9.5 mg/dL 8.6-10.6 eGFR (test code = 9121374283) 66.7 mL/min/1.73m2 MALCOLM (test code = MALCOLM) Association of Glomerular Filtration Rate (GFR) and Staging of Kidney Disease* + --+ --+ ------+| GFR (mL/min/1.73 m2) ?| With Kidney Damage ?| ?Without Kidney Damage+ --------+ --------+ +| ?>90 ?| ?Stage one ?| ? Normal ?+ ---+ ---+ -------+| ?60-89 ?| ?Stage two ?| ? Decreased GFR ? + --+ --+ ------+| ?30-59 ?| ?Stage three ?| ? Stage three ? + --+ --+ ------+| ?15-29 ?| ?Stage four ? | ? Stage four ?+ ---+ ---+ -------+| ?<15 (or dialysis) ? ?| ?Stage five ? | ? Stage five ?+ ---+ ---+ -------+ *Each stage assumes the associated GFR level has been in effect for at least three months. ?Stages 1 to 5, with or without kidney disease, indicate chronic kidney disease. Notes: Determination of stages one and two (with eGFR >59mL/min/1.73 m2) requires estimation of kidney damage for at least three months as defined by structural or functional abnormalities of the kidney, manifested by either:Pathological abnormalities or Markers of kidney damage (including abnormalities in the composition of the blood or urine or abnormalities in imaging tests). Lab Interpretation (test code = 42799-9) Abnormal [facility] [id number] 10:35:13* Test Item Value Reference Range Interpretation Comme nts MAGNESIUM (test code = 1936989373) 2.1 mg/dL 1.7-2.4 Lab Interpretation (test cod e = 08020-9) Normal [facility] (Total Cholesterol, Triglycerides, HDL)2023-03-17 10:35:13* Test Item Value Reference Range Interpretation Comme nts CHOL (test code = 7764456679) 103 mg/dL 120-200 L HDL (test code = 0855806503) 26 mg/dL >=40 L HDLC RATIO (test code = 3853367841) 4.0 <=5.0 TRIG (test code = 5646367968) 146 mg/dL 30-170 LDL CHOL (test code = 30025-9) 48 mg/dL <=160 VLDL (test code = 0645366428) 29 mg/dL 5-60 Lab Interpretation (test cod e = 46090-7) Abnormal [facility]line[facility]rop[facility] [id number] 01:45:34* Test Item Value Reference Range Interpretation Comme nts TROPONIN I (test code = 5040542670) 0.003 ng/mL <=0.034 MALCOLM (test code = MALCOLM) Reference (Normal) Range (defined by the 99th percentile reference limit): <= 0.034 ng/mL Note: Cardiac troponin begins to rise 3-4 hours after the onset of ischemia. Repeat in 4-6 hours if the sample was drawn within 3-4 hours of the onset of the symptom and found normal. Diagnosis of myocardial injury is made with acute changes in cTn concentrations with at least one serial sample above the 99th percentile upper reference limit (URL), taken together with the patient's clinical presentation. Biotin has been reported to cause a negative bias, interpret results relative to patient's use of biotin. Lab Interpretation (test code = 63355-5) Normal [facility] Stimulating Hormone (TSH)2023-03-16 20:34:04* Test Item Value Reference Range Interpretation Comme nts TSH (test code = 3790754585) 3.18 See_Comment Biotin has been reported to cause a negative bias, interpret results relative to patient's use of biotin. [Automated message] The system which generated this result transmitted reference range: 0.45 - 4.70 mIU/L. The reference range was not used to interpret this result as normal/abnormal. Lab Interpretation (test code = 88561-7) Normal [facility]line[facility]cosylated Hemoglobin (A1C)2023-03-16 20:07:12* Test Item Value Reference Range Interpretation Comme nts HGB A1C (test code = 4548-4) 5.5 % 4.0-5.7 MALCOLM (test code = MALCOLM) Reference RangesNormal: <5.7%Prediabetes: 5.7 - 6.4%Diabetes: > 6.5% Lab Interpretation (test code = 87038-4) Normal [facility] [id number] 18:10:50* Test Item Value Reference Range Interpretation Comme nts TROPONIN I (test code = 2992735365) 0.003 ng/mL <=0.034 MALCOLM (test code = MALCOLM) Reference (Normal) Range (defined by the 99th percentile reference limit): <= 0.034 ng/mL Note: Cardiac troponin begins to rise 3-4 hours after the onset of ischemia. Repeat in 4-6 hours if the sample was drawn within 3-4 hours of the onset of the symptom and found normal. Diagnosis of myocardial injury is made with acute changes in cTn concentrations with at least one serial sample above the 99th percentile upper reference limit (URL), taken together with the patient's clinical presentation. Biotin has been reported to cause a negative bias, interpret results relative to patient's use of biotin. Lab Interpretation (test code = 36698-2) Normal [facility] GLU[facility]SE (AUTOMATED)2023-03-16 15:29:23* Test Item Value Reference Range Interpretation Comme nts POCT GLU (test code = 0967174205) 119 mg/dL 70-110 H Lab Interpretation (test cod e = 44699-8) Abnormal [facility] [id number] 13:49:54* Test Item Value Reference Range Interpretation Comme nts TROPONIN I (test code = 2810167506) 0.003 ng/mL <=0.034 MALCOLM (test code = MALCOLM) Reference (Normal) Range (defined by the 99th percentile reference limit): <= 0.034 ng/mL Note: Cardiac troponin begins to rise 3-4 hours after the onset of ischemia. Repeat in 4-6 hours if the sample was drawn within 3-4 hours of the onset of the symptom and found normal. Diagnosis of myocardial injury is made with acute changes in cTn concentrations with at least one serial sample above the 99th percentile upper reference limit (URL), taken together with the patient's clinical presentation. Biotin has been reported to cause a negative bias, interpret results relative to patient's use of biotin. Lab Interpretation (test code = 96857-8) Normal [facility]-TERMINAL [id number] 13:46:36* Test Item Value Reference Range Interpretation Comme nts NT-proBNP (test code = 2038777118) 225 pg/mL <=450 MALCOLM (test code = MALCOLM) Biotin has been reported to cause a negative bias, interpret results relative to patient's use of biotin. Lab Interpretation (test code = 42610-2) Normal [facility]line[facility]NESIUM2023-07-11 13:38:15* Test Item Value Reference Range Interpretation Comme nts MAGNESIUM (test code = 2148294591) 2.1 mg/dL 1.7-2.4 Lab Interpretation (test cod e = 24674-9) Normal [facility]. METABOLIC PANEL (39905)2023-03-16 13:37:55* Test Item Value Reference Range Interpretation Comme nts NA (test code = 2168859843) 141 mmol/L 135-145 K (test code = 1001994393) 4.3 mmol/L 3.5-5.0 CL (test code = 7726806904) 103 mmol/L 98-108 CO2 TOTAL (test code = 1910311887) 27 mmol/L 23-31 AGAP (test code = 0540705634) 11 2-16 BUN (test code = 7767234144) 11 mg/dL 7-23 GLUCOSE (test code = 0566798738) 139 mg/dL 70-110 H CREATININE (test code = 5766569308) 0.94 mg/dL 0.60-1.25 TOTAL BILI (test code = 1190377623) 2.0 mg/dL 0.1-1.1 H CALCIUM (test code = 2366631125) 9.3 mg/dL 8.6-10.6 T PROTEIN (test code = 0884577044) 7.6 g/dL 6.3-8.2 ALBUMIN (test code = 5415563294) 4.5 g/dL 3.5-5.0 ALK PHOS (test code = 5670983702) 58 U/L 34-122 ALTv (test code = 1742-6) 32 U/L 5-50 AST(SGOT) (test code = 9186903925) 34 U/L 13-40 eGFR (test code = 2031068411) 77.4 mL/min/1.73m2 MALCOLM (test code = MALCOLM) Association of Glomerular Filtration Rate (GFR) and Staging of Kidney Disease* + --+ --+ ------+| GFR (mL/min/1.73 m2) ?| With Kidney Damage ?| ?Without Kidney Damage+ --------+ --------+ +| ?>90 ?| ?Stage one ?| ? Normal ?+ ---+ ---+ -------+| ?60-89 ?| ?Stage two ?| ? Decreased GFR ? + --+ --+ ------+| ?30-59 ?| ?Stage three ?| ? Stage three ? + --+ --+ ------+| ?15-29 ?| ?Stage four ? | ? Stage four ?+ ---+ ---+ -------+| ?<15 (or dialysis) ? ?| ?Stage five ? | ? Stage five ?+ ---+ ---+ -------+ *Each stage assumes the associated GFR level has been in effect for at least three months. ?Stages 1 to 5, with or without kidney disease, indicate chronic kidney disease. Notes: Determination of stages one and two (with eGFR >59mL/min/1.73 m2) requires estimation of kidney damage for at least three months as defined by structural or functional abnormalities of the kidney, manifested by either:Pathological abnormalities or Markers of kidney damage (including abnormalities in the composition of the blood or urine or abnormalities in imaging tests). Lab Interpretation (test code = 02559-6) Abnormal [facility]2023-07-11 13:37:50* Test Item Value Reference Range Interpretation Comme nts LIPASE (test code = 9562917716) 191 U/L 0-220 Lab Interpretation (test cod e = 69028-8) Normal [facility] WITH [id number] 13:16:30* Test Item Value Reference Range Interpretation Comme nts WBC (test code = 6690-2) 6.25 See_Comment [Automated messa ge] The system which generated this result transmitted reference range: 4.20 - 10.70 10*3/?L. The reference range was not used to interpret this result as normal/abnormal. RBC (test code = 789-8) 4.68 See_Comment [Automated messa ge] The system which generated this result transmitted reference range: 4.26 - 5.52 10*6/?L. The reference range was not used to interpret this result as normal/abnormal. HGB (test code = 718-7) 14.6 g/dL 12.2-16.4 HCT (test code = 4544-3) 40.8 % 38.4-49.3 MCV (test code = 787-2) 87.2 fL 81.7-95.6 MCH (test code = 785-6) 31.2 pg 26.1-32.7 MCHC (test code = 786-4) 35.8 g/dL 31.2-35.0 H RDW-SD (test code = 86010-9) 39.4 fL 38.5-51.6 RDW-CV (test code = 788-0) 12.5 % 12.1-15.4 PLT (test code = 777-3) 181 See_Comment [Automated messa ge] The system which generated this result transmitted reference range: 150 - 328 10*3/?L. The reference range was not used to interpret this result as normal/abnormal. MPV (test code = 67565-2) 8.8 fL 9.8-13.0 L NRBC/100 WBC (test code = 0297814332) 0.0 See_Comment [Automated [employer] ssage] The system which generated this result transmitted reference range: 0.0 - 10.0 /100 WBCs. The reference range was not used to interpret this result as normal/abnormal. NRBC x10^3 (test code = 0215176077) See_Comment [Automated messa ge] The system which generated this result transmitted reference range: 10*3/?L. The reference range was not used to interpret this result as normal/abnormal. GRAN MAT (NEUT) % (test code = 770-8) 68.0 % IMM GRAN % (test code = 6195063285) 0.20 % LYMPH % (test code = 736-9) 20.6 % MONO % (test code = 5905-5) 8.8 % EOS % (test code = 713-8) 1.9 % BASO % (test code = 706-2) 0.5 % GRAN MAT x10^3(ANC) (test code = 4732308570) 4.25 10*3/uL 1.99-6.95 IMM GRAN x10^3 (test code = 4966095465) 0.00-0.06 LYMPH x10^3 (test code = 731-0) 1.29 10*3/uL 1.09-3.23 MONO x10^3 (test code = 742-7) 0.55 10*3/uL 0.36-1.02 EOS x10^3 (test code = 711-2) 0.12 10*3/uL 0.06-0.53 BASO x10^3 (test code = 704-7) 0.03 10*3/uL 0.01-0.09 Lab Interpretation (test code = 86372-7) Abnormal [facility]CODEYBE[facility]ITALRENE [id number] 06:29:56* Test Item Value Reference Range Interpretation Comme nts TROPONIN I (test code = 9320442064) 0.001 ng/mL <=0.034 MALCOLM (test code = MALCOLM) Reference (Normal) Range (defined by the 99th percentile reference limit): <= 0.034 ng/mL Note: Cardiac troponin begins to rise 3-4 hours after the onset of ischemia. Repeat in 4-6 hours if the sample was drawn within 3-4 hours of the onset of the symptom and found normal. Diagnosis of myocardial injury is made with acute changes in cTn concentrations with at least one serial sample above the 99th percentile upper reference limit (URL), taken together with the patient's clinical presentation. Biotin has been reported to cause a negative bias, interpret results relative to patient's use of biotin. Lab Interpretation (test code = 99578-3) Normal [facility]. METABOLIC PANEL (23147)2022-10-29 06:18:55* Test Item Value Reference Range Interpretation Comme nts NA (test code = 8437040823) 140 mmol/L 135-145 K (test code = 8173472065) 4.4 mmol/L 3.5-5.0 CL (test code = 1751029319) 106 mmol/L 98-108 CO2 TOTAL (test code = 1866514020) 26 mmol/L 23-31 AGAP (test code = 6559812464) 8 2-16 BUN (test code = 4814621509) 13 mg/dL 7-23 GLUCOSE (test code = 6087453334) 181 mg/dL 70-110 H CREATININE (test code = 3552918967) 0.88 mg/dL 0.60-1.25 TOTAL BILI (test code = 5804441753) 1.9 mg/dL 0.1-1.1 H CALCIUM (test code = 3756626106) 8.7 mg/dL 8.6-10.6 T PROTEIN (test code = 4337053776) 6.9 g/dL 6.3-8.2 ALBUMIN (test code = 4174481726) 4.2 g/dL 3.5-5.0 ALK PHOS (test code = 0455766697) 51 U/L 34-122 ALTv (test code = 1742-6) 26 U/L 5-50 AST(SGOT) (test code = 0269523971) 30 U/L 13-40 eGFR (test code = 7223358380) 83.5 mL/min/1.73m2 MALCOLM (test code = MALCOLM) Association of Glomerular Filtration Rate (GFR) and Staging of Kidney Disease* + --+ --+ ------+| GFR (mL/min/1.73 m2) ?| With Kidney Damage ?| ?Without Kidney Damage+ --------+ --------+ +| ?>90 ?| ?Stage one ?| ? Normal ?+ ---+ ---+ -------+| ?60-89 ?| ?Stage two ?| ? Decreased GFR ? + --+ --+ ------+| ?30-59 ?| ?Stage three ?| ? Stage three ? + --+ --+ ------+| ?15-29 ?| ?Stage four ? | ? Stage four ?+ ---+ ---+ -------+| ?<15 (or dialysis) ? ?| ?Stage five ? | ? Stage five ?+ ---+ ---+ -------+ *Each stage assumes the associated GFR level has been in effect for at least three months. ?Stages 1 to 5, with or without kidney disease, indicate chronic kidney disease. Notes: Determination of stages one and two (with eGFR >59mL/min/1.73 m2) requires estimation of kidney damage for at least three months as defined by structural or functional abnormalities of the kidney, manifested by either:Pathological abnormalities or Markers of kidney damage (including abnormalities in the composition of the blood or urine or abnormalities in imaging tests). Lab Interpretation (test code = 26142-9) Abnormal [facility]IP[facility], [id number] 06:18:15* Test Item Value Reference Range Interpretation Comme nts LIPASE (test code = 5981096280) 184 U/L 0-220 Lab Interpretation (test cod e = 62977-2) Normal [facility] WITH [id number] 06:06:16* Test Item Value Reference Range Interpretation Comme nts WBC (test code = 6690-2) 5.75 See_Comment [Automated [employer]] The system which generated this result transmitted reference range: 4.20 - 10.70 10*3/?L. The reference range was not used to interpret this result as normal/abnormal. RBC (test code = 789-8) 4.19 See_Comment L [Automated [employer]] The system which generated this result transmitted reference range: 4.26 - 5.52 10*6/?L. The reference range was not used to interpret this result as normal/abnormal. HGB (test code = 718-7) 13.0 g/dL 12.2-16.4 HCT (test code = 4544-3) 36.4 % 38.4-49.3 L MCV (test code = 787-2) 86.9 fL 81.7-95.6 MCH (test code = 785-6) 31.0 pg 26.1-32.7 MCHC (test code = 786-4) 35.7 g/dL 31.2-35.0 H RDW-SD (test code = 22001-8) 41.2 fL 38.5-51.6 RDW-CV (test code = 788-0) 13.3 % 12.1-15.4 PLT (test code = 777-3) 158 See_Comment [Automated [employer] ge] The system which generated this result transmitted reference range: 150 - 328 10*3/?L. The reference range was not used to interpret this result as normal/abnormal. MPV (test code = 44582-8) 9.0 fL 9.8-13.0 L NRBC/100 WBC (test code = 4621888831) 0.0 See_Comment [Automated [employer] ssage] The system which generated this result transmitted reference range: 0.0 - 10.0 /100 WBCs. The reference range was not used to interpret this result as normal/abnormal. NRBC x10^3 (test code = 5941964272) See_Comment [Automated [employer] ge] The system which generated this result transmitted reference range: 10*3/?L. The reference range was not used to interpret this result as normal/abnormal. GRAN MAT (NEUT) % (test code = 770-8) 66.5 % IMM GRAN % (test code = 6420546499) 0.30 % LYMPH % (test code = 736-9) 22.4 % MONO % (test code = 5905-5) 8.0 % EOS % (test code = 713-8) 2.1 % BASO % (test code = 706-2) 0.7 % GRAN MAT x10^3(ANC) (test code = 1104357981) 3.82 10*3/uL 1.99-6.95 IMM GRAN x10^3 (test code = [id number]) 0.00-0.06 LYMPH x10^3 (test code = 731-0) 1.29 10*3/uL 1.09-3.23 MONO x10^3 (test code = 742-7) 0.46 10*3/uL 0.36-1.02 EOS x10^3 (test code = 711-2) 0.12 10*3/uL 0.06-0.53 BASO x10^3 (test code = 704-7) 0.04 10*3/uL 0.01-0.09 Lab Interpretation (test code = 85751-7) [facility] [id number] 15:38:11* Test Item Value Reference Range Interpretation Comments TROPONIN I (test code = 9417149251) 0.002 ng/mL See_Comment [Automated message] The system which generated this result transmitted reference range: <=0.034. The reference range was not used to interpret this result as normal/abnormal. MALCOLM (test code = MALCOLM) Reference (Normal) Range (defined by the 99th percentile reference limit): <= 0.034 ng/mL Note: Cardiac troponin begins to rise 3-4 hours after the onset of ischemia. Repeat in 4-6 hours if the sample was drawn within 3-4 hours of the onset of the symptom and found normal. Diagnosis of myocardial injury is made with acute changes in cTn concentrations with at least one serial sample above the 99th percentile upper reference limit (URL), taken together with the patient's clinical presentation. Biotin has been reported to cause a negative bias, interpret results relative to patient's use of biotin. Lab Interpretation (test code = 33896-4) Normal [facility] [id number] 15:34:00* Test Item Value Reference Range Interpretation Comme nts NT-proBNP (test code = 2669511943) 74 pg/mL See_Comment [Automated message] The system which generated this result transmitted reference range: <=450. The reference range was not used to interpret this result as normal/abnormal. MALCOLM (test code = MALCOLM) Biotin has been reported to cause a negative bias, interpret results relative to patient's use of biotin. Lab Interpretation (test code = 05911-1) [facility]OLIC PANEL (NA, K, CL, CO2, GLUCOSE, BUN, CREATININE, CA)2021-03-27 15:25:38* Test Item Value Reference Range Interpretation Comme nts NA (test code = 3163520766) 139 mmol/L 135-145 K (test code = 3635588680) 4.6 mmol/L 3.5-5.0 CL (test code = 1086549810) 100 mmol/L 98-108 CO2 TOTAL (test code = 6889820725) 28 mmol/L 23-31 AGAP (test code = 1965182547) 2-16 BUN (test code = 6717274225) 9 mg/dL 7-23 GLUCOSE (test code = 1047984248) 164 mg/dL 70-110 H CREATININE (test code = 1230270157) 0.83 mg/dL 0.60-1.25 CALCIUM (test code = 9832193706) 10.1 mg/dL 8.6-10.6 eGFR (test code = 9688580499) mL/min/1.73m2 MALCOLM (test code = MALCOLM) Association of Glomerular Filtration Rate (GFR) and Staging of Kidney Disease* + --+ --+ ------+| GFR (mL/min/1.73 m2) ?| With Kidney Damage ?| ?Without Kidney Damage+ --------+ --------+ +| ?>90 ?| ?Stage one ?| ? Normal ?+ ---+ ---+ -------+| ?60-89 ?| ?Stage two ?| ? Decreased GFR ? + --+ --+ ------+| ?30-59 ?| ?Stage three ?| ? Stage three ? + --+ --+ ------+| ?15-29 ?| ?Stage four ? | ? Stage four ?+ ---+ ---+ -------+| ?<15 (or dialysis) ? ?| ?Stage five ? | ? Stage five ?+ ---+ ---+ -------+ *Each stage assumes the associated GFR level has been in effect for at least three months. ?Stages 1 to 5, with or without kidney disease, indicate chronic kidney disease. Notes: Determination of stages one and two (with eGFR >59mL/min/1.73 m2) requires estimation of kidney damage for at least three months as defined by structural or functional abnormalities of the kidney, manifested by either:Pathological abnormalities or Markers of kidney damage (including abnormalities in the composition of the blood or urine or abnormalities in imaging tests). Lab Interpretation (test code = 36751-9) [facility] FUN[facility] PAN[facility] (93723) (ALB,T.PRO,BILI T,BU/BC,ALT,AST,ALK PHOS)2021-03-27 15:25:38* Test Item Value Reference Range Interpretation Comme nts TOTAL BILI (test code = 3561861189) 1.9 mg/dL 0.1-1.1 H BILI UNCON (test code = 0610471150) 1.7 mg/dL 0.1-1.1 H BILI CONJ (test code = 6790654067) 0.0 mg/dL 0.0-0.3 T PROTEIN (test code = 3286961500) 9.0 g/dL 6.3-8.2 H ALBUMIN (test code = 6748824647) 5.2 g/dL 3.5-5.0 H ALK PHOS (test code = 8931641259) 69 U/L 34-122 ALTv (test code = 1742-6) 29 U/L 5-50 AST(SGOT) (test code = 2467767394) 39 U/L 13-40 Lab Interpretation (test cod e = 93756-0) [facility]IP[facility]2021-07-22 15:25:38* Test Item Value Reference Range Interpretation Comme nts LIPASE (test code = 9248434045) 179 U/L 0-220 Lab Interpretation (test cod e = 40518-2) [facility]IUM2021-07-22 15:25:38* Test Item Value Reference Range Interpretation Comme nts MAGNESIUM (test code = 6754584160) 2.1 mg/dL 1.7-2.4 Lab Interpretation (test cod e = 84077-8) Normal [facility]CB WITH [id number] 15:13:57* Test Item Value Reference Range Interpretation Comme nts WBC (test code = 6690-2) See_Comment [Automated [employer] ge] The system which generated this result transmitted reference range: 4.20 - 10.70 10*3/?L. The reference range was not used to interpret this result as normal/abnormal. RBC (test code = 789-8) See_Comment [Automated [employer] ge] The system which generated this result transmitted reference range: 4.26 - 5.52 10*6/?L. The reference range was not used to interpret this result as normal/abnormal. HGB (test code = 718-7) 16.0 g/dL 12.2-16.4 HCT (test code = 4544-3) 45.0 % 38.4-49.3 MCV (test code = 787-2) 85.7 fL 81.7-95.6 MCH (test code = 785-6) 30.5 pg 26.1-32.7 MCHC (test code = 786-4) 35.6 g/dL 31.2-35.0 H RDW-SD (test code = 87252-7) 39.9 fL 38.5-51.6 RDW-CV (test code = 788-0) 12.9 % 12.1-15.4 PLT (test code = 777-3) See_Comment [Automated messa ge] The system which generated this result transmitted reference range: 150 - 328 10*3/?L. The reference range was not used to interpret this result as normal/abnormal. MPV (test code = 97712-1) 8.9 fL 9.8-13.0 L NRBC/100 WBC (test code = 8136439102) See_Comment [Automated [employer] ssage] The system which generated this result transmitted reference range: 0.0 - 10.0 /100 WBCs. The reference range was not used to interpret this result as normal/abnormal. NRBC x10^3 (test code = 7396589903) <0.01 See_Comment [Automated messa ge] The system which generated this result transmitted reference range: 10*3/?L. The reference range was not used to interpret this result as normal/abnormal. GRAN MAT (NEUT) % (test code = 770-8) 59.1 % IMM GRAN % (test code = 7774311598) 0.30 % LYMPH % (test code = 736-9) 29.8 % MONO % (test code = 5905-5) 8.3 % EOS % (test code = 713-8) 1.9 % BASO % (test code = 706-2) 0.6 % GRAN MAT x10^3(ANC) (test code = 6542116680) 3.71 10*3/uL 1.99-6.95 IMM GRAN x10^3 (test code = 1445675766) <0.03 0.00-0.06 LYMPH x10^3 (test code = 731-0) 1.87 10*3/uL 1.09-3.23 MONO x10^3 (test code = 742-7) 0.52 10*3/uL 0.36-1.02 EOS x10^3 (test code = 711-2) 0.12 10*3/uL 0.06-0.53 BASO x10^3 (test code = 704-7) 0.04 10*3/uL 0.01-0.09 Lab Interpretation (test code = 04829-1) Abnormal [facility]"
[2023-08-13 06:51] LABS: Absolute Lymphocytes (CBC) 1.1 K/uL (0.7-4.9); Hematocrit 38.4 % (39.6-49.0); Lymphocytes % 16.1 % (15.3-44.8); MCV 86.7 fL (80-100); MPV 6.2 fL (7.6-11.3); Platelets 207 thou/uL (152-406); RBC Red Blood Cell Count 4.42 M/uL (4.33-5.43)
[2023-08-13 06:58] LABS: Protime INR 1.15
[2023-08-13 07:11] LABS: Albumin 3.6 g/dL (3.4-5.0); Bilirubin Total 1.8 mg/dL (0.2-1.0); Potassium 4.3 mEq/L (3.5-5.1)
--- NOTE | 2023-08-13 07:14 | ER ---
Nurse's Notes [facility] Name: Irving Mendenhall Age: 78 yrs Sex: Male : 1945 Arrival Date: 08/13/2023 Time: 05:52 Bed IW1 Private MD: Diagnosis: Essential (primary) hypertension;Epistaxis;assisted (current) use of anticoagulants Presentation: 08/13 06:37 Chief complaint: Patient states: nose blood,onset 3 hours ago. Patient stated history pf1 of epistaxis and is currently on blood thinners. Coronavirus screen: Vaccine status: Patient reports being unvaccinated. Client denies travel out of the [place] in the last 14 days. At this time, the client does not indicate any symptoms associated with coronavirus-19. Ebola Screen: Patient negative for fever greater than or equal to 101.5 degrees Fahrenheit, and additional compatible Ebola Virus Disease symptoms. Initial Sepsis Screen: Does the patient meet any 2 criteria? No. Patient's initial sepsis screen is negative. Does the patient have a suspected source of infection? No. Patient's initial sepsis screen is negative. Risk Assessment: Do you want to hurt yourself or someone else? Patient reports no desire to harm self or others. 06:37 Method Of Arrival: Ambulatory pf1 06:37 Acuity: DK 3 pf1 Historical: - Allergies: 06:42 NKDA; pf1 - PMHx: 06:42 CVA; Diabetes - NIDDM; Hypertension; Hypercholesterolemia; pf1 06:44 nose bleed; pf1 - PSHx: 06:42 Cholecystectomy; pf1 - Immunization history:: Adult Immunizations up to date, Client reports having NOT received the Covid vaccine. Last tetanus immunization: > 10 years ago Flu vaccine is not up to date. - Social history:: Smoking status: Patient/guardian denies using tobacco, the patient reports quitting approximately 20 years ago, Patient/guardian denies using alcohol, street drugs. - Family history:: not pertinent. Screenin:21 [facility] ED Fall Risk Assessment (Adult) History of falling in the last 3 months, kb3 including since admission No falls in past 3 months (0 pts) Confusion or Disorientation No (0 pts) Intoxicated or Sedated No (0 pts) Impaired Gait No (0 pts) Mobility Assist Device Used No (0 pt) Altered Elimination No (0 pt) Score/Fall Risk Level 0 - 2 = Low Risk Oriented to surroundings. Abuse screen: Denies threats or abuse. Denies injuries from another. Nutritional screening: No deficits noted. Tuberculosis screening: No symptoms or risk factors identified. Assessment: 07:21 General: Appears in no apparent distress. Behavior is calm, cooperative. Pain: Denies kb3 pain. EENT: Reports Nosebleed this morning, bleeding has resolved since arrival. Vital Signs: 06:37 BP 172 / 78; Pulse 74; Resp 18; Temp 97.7; Pulse Ox 100% on R/A; Weight 68.04 kg; pf1 Height 6 ft. 1 in. ; Pain 0/10; 07:24 BP 172 / 86; Pulse 79; Resp 20; Temp 97.1; Pulse Ox 100% ; Pain 0/10; kb3 06:37 Body Mass Index 19.79 (68.04 kg, 185.42 cm) pf1 06:37 Pain Scale: Adult pf1 07:24 Pain Scale: Adult kb3 ED Course: 05:54 Patient arrived in ED. jj6 06:20 Larry Cobb MD is Attending Physician. abdon 06:23 Dora Ribeiro, DAVI is Primary Nurse. pf1 06:42 Triage completed. pf1 06:44 Inserted saline lock: 18 gauge in right antecubital area, using aseptic technique. pf1 Blood collected. 06:44 PT-INR Sent. pf1 06:44 Comprehensive Metabolic Panel Sent. pf1 06:44 CBC with Diff Sent. pf1 07:14 Priyanka Blair MD is Referral Physician. sp3 07:21 No provider procedures requiring assistance completed. IV discontinued, intact, kb3 bleeding controlled, No redness/swelling at site. 07:21 Patient has correct armband on for positive identification. Call light in reach. kb3 Provided Education on: Do not blow nose, monitor BP, call PCP. Administered Medications: No medications were administered Medication: 07:21 VIS not applicable for this client. kb3 Outcome: 07:14 Discharge ordered by . sp3 07:21 Discharged to home ambulatory, kb3 07:21 Condition: stable 07:21 Discharge instructions given to patient, Instructed on discharge instructions, follow up and referral plans. Demonstrated understanding of instructions, follow-up care, 07:25 Patient left the ED. kb3 Signatures: Larry Cobb MD MD cha Patel, Setul, MD MD sp3 Ursula Henson jj6 Joann Soria RN RN kb3 Dora Ribeiro RN RN pf1 Corrections: (The following items were deleted from the chart) 06:44 06:42 PMHx: nose bleed (Hypercholesterolemia); pf1 pf1
--- NOTE | 2023-08-13 07:14 | EDPHYS ---
Physician Documentation [facility] Name: Irving Mendenhall Age: 78 yrs Sex: Male : 1945 Arrival Date: 08/13/2023 Time: 05:52 Bed IW1 Private MD: ED Physician Larry Cobb HPI: 08/13 06:43 This 78 yrs old Male presents to ER via Ambulatory with complaints of Nose abdon Bleed. 06:43 The patient presents with a nose bleed, that is apparently anterior, occurred from an abdon unknown cause. Onset: The symptoms/episode began/occurred this morning. Modifying factors: The symptoms are alleviated by nothing. the symptoms are aggravated by nothing. Associated signs and symptoms: The patient has no apparent associated signs or symptoms, Loss of consciousness: the patient experienced no loss of consciousness. Severity of symptoms: At their worst the symptoms were mild in the emergency department the symptoms have resolved and did so just prior to arrival. The patient has experienced similar episodes in the past, multiple times. Historical: - Allergies: 06:42 NKDA; pf1 - PMHx: 06:42 CVA; Diabetes - NIDDM; Hypertension; Hypercholesterolemia; pf1 06:44 nose bleed; pf1 - PSHx: 06:42 Cholecystectomy; pf1 - Immunization history:: Adult Immunizations up to date, Client reports having NOT received the Covid vaccine. Last tetanus immunization: > 10 years ago Flu vaccine is not up to date. - Social history:: Smoking status: Patient/guardian denies using tobacco, the patient reports quitting approximately 20 years ago, Patient/guardian denies using alcohol, street drugs. - Family history:: not pertinent. ROS: 06:43 Constitutional: Negative for fever, chills, and weight loss, Eyes: Negative for injury, abdon pain, redness, and discharge, Neck: Negative for injury, pain, and swelling, Cardiovascular: Negative for chest pain, palpitations, and edema, Respiratory: Negative for shortness of breath, cough, wheezing, and pleuritic chest pain, Abdomen/GI: Negative for abdominal pain, nausea, vomiting, diarrhea, and constipation, Back: Negative for injury and pain, : Negative for injury, bleeding, discharge, and swelling, MS/Extremity: Negative for injury and deformity, Skin: Negative for injury, rash, and discoloration, Neuro: Negative for headache, weakness, numbness, tingling, and seizure, Psych: Negative for depression, anxiety, suicide ideation, homicidal ideation, and hallucinations, Allergy/Immunology: Negative for hives, rash, and allergies, Endocrine: Negative for neck swelling, polydipsia, polyuria, polyphagia, and marked weight changes, Hematologic/Lymphatic: Negative for swollen nodes, abnormal bleeding, and unusual bruising, 06:43 ENT: Positive for nose bleed, Exam: 06:43 Constitutional: This is a well developed, well nourished patient who is awake, alert, abdon and in no acute distress. Head/Face: Normocephalic, atraumatic. Eyes: Pupils equal round and reactive to light, extra-ocular motions intact. Lids and lashes normal. Conjunctiva and sclera are non-icteric and not injected. Cornea within normal limits. Periorbital areas with no swelling, redness, or edema. Neck: Trachea midline, no thyromegaly or masses palpated, and no cervical lymphadenopathy. Supple, full range of motion without nuchal rigidity, or vertebral point tenderness. No Meningismus. Chest/axilla: Normal chest wall appearance and motion. Nontender with no deformity. No lesions are appreciated. Cardiovascular: Regular rate and rhythm with a normal S1 and S2. No gallops, murmurs, or rubs. Normal PMI, no JVD. No pulse deficits. Respiratory: Lungs have equal breath sounds bilaterally, clear to auscultation and percussion. No rales, rhonchi or wheezes noted. No increased work of breathing, no retractions or nasal flaring. Abdomen/GI: Soft, non-tender, with normal bowel sounds. No distension or tympany. No guarding or rebound. No evidence of tenderness throughout. Back: No spinal tenderness. No costovertebral tenderness. Full range of motion. Male : Normal genitalia with no discharge or lesions. Skin: Warm, dry with normal turgor. Normal color with no rashes, no lesions, and no evidence of cellulitis. MS/ Extremity: Pulses equal, no cyanosis. Neurovascular intact. Full, normal range of motion. Neuro: Awake and alert, GCS 15, oriented to person, place, time, and situation. Cranial nerves II-XII grossly intact. Motor strength 5/5 in all extremities. Sensory grossly intact. Cerebellar exam normal. Normal gait. Psych: Awake, alert, with orientation to person, place and time. Behavior, mood, and affect are within normal limits. 06:43 ENT: Nose: External nose: no obvious acute abnormality, Nasal septum: is midline, Nasal mucosa: normal, Turbinates: are normal, abrasion, is not appreciated, bleeding, is not appreciated, clotted blood, is not appreciated, nasal drainage, is not appreciated, a foreign body, is not appreciated, Vital Signs: 06:37 BP 172 / 78; Pulse 74; Resp 18; Temp 97.7; Pulse Ox 100% on R/A; Weight 68.04 kg; pf1 Height 6 ft. 1 in. ; Pain 0/10; 07:24 BP 172 / 86; Pulse 79; Resp 20; Temp 97.1; Pulse Ox 100% ; Pain 0/10; kb3 06:37 Body Mass Index 19.79 (68.04 kg, 185.42 cm) pf1 06:37 Pain Scale: Adult pf1 07:24 Pain Scale: Adult kb3 MDM: 06:20 Patient medically screened. abdon 06:37 Patient medically screened. abdon 06:47 Data reviewed: vital signs, nurses notes, lab test result(s), CBC, electrolytes. abdon Consideration of Admission/Observation Escalation of care including admission/observation considered. I considered the following discharge prescriptions or medication management in the emergency department Medications were administered in the Emergency Department. See MAR. Test considered but Not performed: CT: NO CT HEAD. Historians other than the Patient: PT WELL INFORMED. Care significantly affected by the following chronic conditions: Diabetes, Hypertension, NOSE BLEEDS. 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 sp3 Followup: abdon - With: Private Physician - When: 1 - 2 days - Reason: Recheck today's complaints, Continuance of care, Re-evaluation by your physician Followup: abdon - With: Priyanka Blair MD - When: Today - Reason: Recheck today's complaints, Re-evaluation by your physician Discharge Instructions: - Discharge Summary Sheet abdon - Nosebleed, Adult abdon - Hypertension, Adult abdon - Cool Mist Vaporizer abdon - Hypertension, Adult, [id number] abdon - How to Take Your Blood Pressure, [id number] abdon - Nosebleed, Adult, [id number] abdon - Managing Your Hypertension abdon Forms: - Medication Reconciliation Form sp3 - Thank You Letter sp3 - Antibiotic Education sp3 - Prescription Opioid Use sp3 - Patient Portal Instructions sp3 - Leadership Thank You Letter sp3 Signatures: Dispatcher [employer] Larry Donahue MD MD cha Patel, Setul, MD MD sp3 Dora Ribeiro, RN RN pf1 Corrections: (The following items were deleted from the chart) 06:44 06:42 PMHx: nose bleed (Hypercholesterolemia); pf1 pf1
[2023-08-13 07:30] VITALS: O2SAT 100
[2023-08-13 07:41] VITALS: BP 172/86; TEMP 97.1
== END 2023-08-13 07:25 | disposition home or self-care (01) ==
LOC: ER 05:52
DX: R04.0 Epistaxis (principal); I10 Essential (primary) hypertension; Z79.01 Long term (current) use of anticoagulants; E11.9 Type 2 diabetes mellitus without complications; Z86.73 Personal history of transient ischemic attack (TIA), and cerebral infarction without residual deficits; Z28.310 Unvaccinated for COVID-19
CPT/HCPCS: 36415; 80053; 85025; 85610; 99283